=== PATIENT | female | born 1980 | race Two or more races ===

== ENCOUNTER 2017-07-15 20:31 | Emergency (ER) | payer SELFPAY ==
[~2017-07-15] VITALS: Ht 162.6 cm; Wt 56.7 kg
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
[2017-07-15] MEDS ORDERED: HYDROCODONE/APAP 5/325MG 1 EACH TABLET PO ONE (22:00)
[2017-07-15] MEDS ORDERED: HYDROCODONE/APAP 5/325MG 1 EACH TABLET ONE (22:05)
[2017-07-15 23:07] VITALS: BP 128/72
== END 2017-07-15 23:09 | disposition home or self-care (01) ==
LOC: ER 20:32
DX: M54.5 Low back pain (principal); M25.521 Pain in right elbow; V02.99XA Pedestrian with other conveyance injured in collision with two- or three-wheeled motor vehicle, unspecified whether traffic or nontraffic accident, initial encounter; Y93.89 Activity, other specified; Y92.413 State road as the place of occurrence of the external cause; Y99.8 Other external cause status
CPT/HCPCS: 72100; 72220; 73090; 99284; A4606; A6402; Z7610